=== PATIENT | female | born 1930 | race Caucasian/White ===

== ENCOUNTER 2017-11-26 23:21 | Inpatient (IN) ==
[2017-11-27] MEDS ORDERED: ALBUTEROL/IPRATROPIUM 3 ML NEB RESP TX STA (00:05)
[2017-11-27] MEDS ORDERED: cefTRIAXone 1,000 MG in SODIUM CHLORIDE 0.9% 100 ML IV STA (00:05)
[2017-11-27] MEDS ORDERED: cefTRIAXone 1,000 MG VIAL ONE (00:26)
[2017-11-27] MEDS ORDERED: SODIUM CHLORIDE 0.9% 100 ML IV ONE (00:26)
[2017-11-27 00:46] LABS: Basophils % 0.6 % (0.0-0.8); Eosinophils # 0.1 10*3/uL (0.0-0.87); Eosinophils % 1.4 % (0.00-10.9); Hematocrit 24.1 VOL% (35.7-47.0); Hemoglobin 7.9 GM/DL (12.0-16.0); Immature Granulocytes % 1.8 %; Immature Granulocytes Absolute 0.09 #; Lymphocytes # 0.5 10*3/uL (1.4-4.0); Lymphocytes % 9.6 % (21.3-54.2); Mean Corpuscular HGB Conc 32.8 GM/DL (32-36); Mean Corpuscular Hemoglobin 37 PG (27-34); Mean Corpuscular Volume 112.6 FL (87-102); Mean Platelet Volume 11.7 FL (9.6-12.0); Monocytes # 0.6 10*3/uL (0.11-0.8); Monocytes % 11.2 % (1.7-12.7); NRBC # 0.03 10*3/uL; Neutrophils # 3.7 10*3/uL (1.4-7.4); Neutrophils % 75.4 % (38.7-73.9); Platelet Count 182 T/CUMM (130-400); Red Blood Count 2.14 MC/CUMM (3.8-5.5); Red Cell Distribution Width 21.9 % (9.3-17.3); White Blood Count 4.9 T/CUMM (4-12)
[2017-11-27 00:58] LABS: INR 1.2; PT Patient Result 12.2 SECS
[2017-11-27 01:03] LABS: Lactic Acid 1.2 MMOL/L (0.4-2.0)
[2017-11-27 01:12] LABS: Albumin 2.8 G/DL (3.4-5.0); Bilirubin,Total 1.3 MG/DL (0.2-1.0); Calcium 8.6 MG/DL (8.5-10.1); Osmolality,Calculated 301.3 MOS/KG (273-304); Potassium 3.7 MMOL/L (3.5-5.1); Total Protein 5.2 G/DL (6.4-8.3)
[2017-11-27 01:13] LABS: Troponin I Only 0.044 NG/ML (0.00-0.045)
[2017-11-27] MEDS ORDERED: GLUCAGON 1 MG VIAL IM PRN (03:57)
[2017-11-27] MEDS ORDERED: DEXTROSE 50% 25 GM/50 ML VIAL IV PRN (03:57)
[2017-11-27] MEDS ORDERED: ALBUTEROL/IPRATROPIUM 3 ML NEB RESP TX PRN (03:59)
[2017-11-27] MEDS ORDERED: SODIUM CHLORIDE 0.45% 1,000 ML IV SCH (04:00)
[2017-11-27] MEDS ORDERED: SODIUM CHLORIDE 0.45% 1,000 ML IV ONE (05:23)
[2017-11-27] MEDS ORDERED: PIPERACILLIN/TAZOBACTAM 3,375 MG VIAL IV ONE (07:09)
[2017-11-27] MEDS: PIPERACILLIN/TAZOBACTAM 3,375 MG in SODIUM CHLORIDE 0.9% 100 ML IV SCH ×2 (07:15→18:43)
[2017-11-27] MEDS: SODIUM CHLORIDE 0.45% 1,000 ML IV SCH ×3 (07:20→23:27)
[2017-11-27 07:36] LABS: Eosinophils 1 % (0-10); Lymphocytes 15 % (20-55); Platelet Estimate Normal; Segmented Neutrophils 84 % (50-85); Total Cells Counted 100
[2017-11-27] MEDS: INSULIN LISPRO 100 UNIT/ML SUBCUT SCH ×3 (07:49→18:35)
[2017-11-27] MEDS: NOREPINEPHRINE 8 MG in SODIUM CHLORIDE 0.9% 242 ML IV SCH ×2 (08:18→23:41)
[2017-11-27 08:27] LABS: Apearance,Urine CLOUDY (Clear); Bacteria,Urine Many /HPF (Few); Bilirubin,Urine Negative (Negative); Blood, Urine Negative (Negative); Glucose,Urine (UA) Negative (Negative); Ketones,Urine Negative (Negative); Mucus,Urine Occasional /LPF (Occasional); Nitrite,Urine Positive (Negative); Protein,Urine Negative; RBC,Urine 11 /HPF (0-4); Squamous Epithelial Cell,Urine Occasional /HPF (0-10); Urine Color Yellow (Yellow); Urine Specific Gravity 1.019 (1.001-1.035); WBC,Urine 33 /HPF (0-6)
[2017-11-27] MEDS ORDERED: METOPROLOL TARTRATE 25 MG TABLET PO SCH (09:00)
[2017-11-27] MEDS: DOCUSATE SODIUM 100 MG CAPSULE PO SCH ×2 (12:51→13:51)
[2017-11-27] MEDS: ATORVASTATIN 10 MG TABLET PO SCH (12:51)
[2017-11-27] MEDS: APIXABAN 5 MG TABLET PO SCH ×2 (12:51→21:39)
[2017-11-27] MEDS: MULTIVITAMIN (CENTRUM) TABLET PO SCH ×2 (12:51→21:39)
[2017-11-27] MEDS: FERROUS SULFATE 325 MG TABLET PO SCH ×2 (12:51→21:39)
[2017-11-27] MEDS: DOCUSATE SODIUM 100 MG/10 ML UDCUP NG SCH ×2 (13:54→21:39)
[2017-11-27] MEDS: DILTIAZEM 60 MG TABLET PO SCH (15:16)
[2017-11-27] MEDS ORDERED: ZINC OXIDE PASTE 113 GM TUBE TOP PRN (15:54)
[2017-11-27] MEDS ORDERED: DILTIAZEM 50 MG/10 ML VIAL IV ONE ×2 (20:18→22:06)
[2017-11-27 21:19] LABS: Allen Test Positive; Pt O2 Delivery Device Venturi Mask
[2017-11-27 21:20] LABS: ABG HCO3 24.4 MMOL/L (20-26); ABG Oxygen Saturation 94.4 % (95-100); ABG PCO2 39.7 MM HG (35-48); ABG PH 7.402 (7.35-7.45); ABG TCO2 22.7 MMOL/L (23-27)
[2017-11-27] MEDS ORDERED: FUROSEMIDE 100 MG/10 ML VIAL ONE (21:48)
[2017-11-27] MEDS ORDERED: ETOMIDATE 20 MG/10 ML VIAL IV ONE ×2 (21:48→22:02)
[2017-11-27] MEDS ORDERED: SUCCINYLCHOLINE 200 MG/10 ML VIAL ONE (21:48)
[2017-11-27] MEDS ORDERED: DILTIAZEM INJ 100 MG in SODIUM CHLORIDE 0.9% 100 ML IV SCH (22:00)
[2017-11-27] MEDS ORDERED: FUROSEMIDE 40 MG/4 ML VIAL IV ONE (22:02)
[2017-11-27] MEDS ORDERED: SUCCINYLCHOLINE 200 MG/10 ML VIAL IV ONE (22:02)
[2017-11-27] MEDS ORDERED: PHENYLEPHRINE DRIP 0 MG/0 ML PREMIX IV ONE (22:06)
[2017-11-27] MEDS ORDERED: LEVALBUTEROL 1.25 MG/3 ML NEB RESP TX PRN (22:11)
[2017-11-27 22:34] LABS: ABG Base Excess -3.5 MMOL/L (-2.5-2.5); ABG HCO3 22.1 MMOL/L (20-26); ABG PCO2 42.2 MM HG (35-48); ABG PH 7.337 (7.35-7.45); ABG PO2 269.5 MM HG (80-95); ABG TCO2 23.4 MMOL/L (23-27); Allen Test Positive; Pt O2 Delivery Device Ventilator
[2017-11-27] MEDS: PROPOFOL 1,000 MG/100 ML BOTTLE IV SCH (22:40)
[2017-11-27] MEDS: DILTIAZEM INJ 100 MG in SODIUM CHLORIDE 0.9% 100 ML IV SCH (22:57)
[2017-11-27] MEDS: VANCOMYCIN INJ 1,000 MG in SODIUM CHLORIDE 0.9% 250 ML IV SCH (23:20)
[2017-11-27] MEDS: fentaNYL INJ 1,250 MCG in SODIUM CHLORIDE 0.9% 225 ML IV SCH (23:24)
[2017-11-27 23:35] LABS: Basophils % 0.4 % (0.0-0.8); Eosinophils % 0.2 % (0.00-10.9); Hemoglobin 7.9 GM/DL (12.0-16.0); Immature Granulocytes % 1.3 %; Immature Granulocytes Absolute 0.12 #; Lymphocytes # 0.3 10*3/uL (1.4-4.0); Lymphocytes % 2.7 % (21.3-54.2); Mean Corpuscular HGB Conc 31.6 GM/DL (32-36); Mean Corpuscular Hemoglobin 37 PG (27-34); Mean Corpuscular Volume 115.7 FL (87-102); Mean Platelet Volume 11.7 FL (9.6-12.0); Monocytes # 0.7 10*3/uL (0.11-0.8); Monocytes % 7.9 % (1.7-12.7); NRBC # 0.08 10*3/uL; Neutrophils # 8.2 10*3/uL (1.4-7.4); Neutrophils % 87.5 % (38.7-73.9); Platelet Count 193 T/CUMM (130-400); Red Blood Count 2.16 MC/CUMM (3.8-5.5); White Blood Count 9.4 T/CUMM (4-12)
[2017-11-27 23:51] LABS: Lactic Acid 1.4 MMOL/L (0.4-2.0)
[2017-11-27 23:55] LABS: Albumin 2.7 G/DL (3.4-5.0); Bilirubin,Total 1.5 MG/DL (0.2-1.0); Calcium 8.2 MG/DL (8.5-10.1); Osmolality,Calculated 288.1 MOS/KG (273-304); Potassium 3.8 MMOL/L (3.5-5.1); Total Protein 5.2 G/DL (6.4-8.3)
[2017-11-27 23:59] LABS: Troponin I Only 0.057 NG/ML (0.00-0.045)
[2017-11-28] MEDS: LEVALBUTEROL 1.25 MG/3 ML NEB RESP TX SCH ×4 (00:03→19:03)
[2017-11-28] MEDS ORDERED: AMIODARONE 150 MG/3 ML VIAL ONE (00:31)
[2017-11-28] MEDS ORDERED: AMIODARONE INJ 150 MG in DEXTROSE 5% 100 ML IV ONE (00:50)
[2017-11-28] MEDS ORDERED: AMIODARONE INJ 450 MG in DEXTROSE 5% 241 ML IV SCH ×3 (01:00→10:00)
[2017-11-28] MEDS ORDERED: DIGOXIN 0.5 MG/2 ML AMP IV ONE ×2 (01:00→07:30)
[2017-11-28] MEDS: INSULIN LISPRO 100 UNIT/ML SUBCUT SCH ×5 (01:04→23:41)
[2017-11-28] MEDS ORDERED: DIGOXIN 0.5 MG/2 ML AMP ONE (01:06)
[2017-11-28] MEDS ORDERED: CALCIUM GLUCONATE 1,000 MG in SODIUM CHLORIDE 0.9% 100 ML IV ONE (01:08)
[2017-11-28] MEDS: DILTIAZEM 60 MG TABLET PO SCH (01:36)
[2017-11-28 01:41] LABS: Band Neutrophils 33 % (0-10); Lymphocytes 5 % (20-55); Metamyelocytes 1 %; Nucleated Red Blood Cells 1 (0-5); Segmented Neutrophils 56 % (50-85); Total Cells Counted 100
[2017-11-28 01:42] LABS: Anisocytosis 1+; Macrocytosis 2+; Poikilocytosis 1+; Polychromasia 1+
[2017-11-28] MEDS: PIPERACILLIN/TAZOBACTAM 3,375 MG in SODIUM CHLORIDE 0.9% 100 ML IV SCH ×3 (03:08→17:55)
[2017-11-28] MEDS: PROPOFOL 1,000 MG/100 ML BOTTLE IV SCH ×4 (04:17→23:11)
[2017-11-28] MEDS ORDERED: NOREPINEPHRINE 4 MG/4 ML VIAL IV ONE (05:29)
[2017-11-28 05:42] LABS: ABG Base Excess 0.4 MMOL/L (-2.5-2.5); ABG HCO3 25.9 MMOL/L (20-26); ABG Oxygen Saturation 98.5 % (95-100); ABG PCO2 45.8 MM HG (35-48); ABG TCO2 27.3 MMOL/L (23-27)
[2017-11-28] MEDS: NOREPINEPHRINE 8 MG in SODIUM CHLORIDE 0.9% 242 ML IV SCH ×3 (06:58→20:23)
[2017-11-28] MEDS ORDERED: FUROSEMIDE 40 MG/4 ML VIAL IV ONE (07:01)
[2017-11-28] MEDS: SODIUM CHLORIDE 0.45% 1,000 ML IV SCH ×2 (07:29→22:29)
[2017-11-28] MEDS: FERROUS SULFATE 325 MG TABLET PO SCH ×2 (09:47→21:38)
[2017-11-28] MEDS: MULTIVITAMIN (CENTRUM) TABLET PO SCH ×2 (09:47→21:38)
[2017-11-28] MEDS: DOCUSATE SODIUM 100 MG/10 ML UDCUP NG SCH ×2 (09:47→21:38)
[2017-11-28] MEDS: ATORVASTATIN 10 MG TABLET PO SCH (09:47)
[2017-11-28] MEDS: APIXABAN 5 MG TABLET PO SCH ×2 (09:47→21:38)
[2017-11-28] MEDS: VANCOMYCIN INJ 1,000 MG in SODIUM CHLORIDE 0.9% 250 ML IV SCH ×2 (10:15→23:23)
[2017-11-28] MEDS: DILTIAZEM INJ 100 MG in SODIUM CHLORIDE 0.9% 100 ML IV SCH ×3 (12:14→23:11)
[2017-11-28] MEDS: fentaNYL INJ 1,250 MCG in SODIUM CHLORIDE 0.9% 225 ML IV SCH ×2 (21:40→23:11)
[2017-11-29] MEDS: LEVALBUTEROL 1.25 MG/3 ML NEB RESP TX SCH ×4 (00:34→19:44)
[2017-11-29] MEDS: PIPERACILLIN/TAZOBACTAM 3,375 MG in SODIUM CHLORIDE 0.9% 100 ML IV SCH ×3 (02:37→18:20)
[2017-11-29] MEDS: DILTIAZEM INJ 100 MG in SODIUM CHLORIDE 0.9% 100 ML IV SCH ×4 (02:40→22:32)
[2017-11-29] MEDS: PROPOFOL 1,000 MG/100 ML BOTTLE IV SCH ×3 (03:46→22:32)
[2017-11-29 04:39] LABS: Basophils # 0.1 10*3/uL (0.0-0.2); Basophils % 0.8 % (0.0-0.8); Eosinophils # 0.2 10*3/uL (0.0-0.87); Eosinophils % 2.8 % (0.00-10.9); Hematocrit 23.7 VOL% (35.7-47.0); Hemoglobin 7.7 GM/DL (12.0-16.0); Immature Granulocytes % 0.9 %; Immature Granulocytes Absolute 0.06 #; Lymphocytes # 1.2 10*3/uL (1.4-4.0); Lymphocytes % 18.2 % (21.3-54.2); Mean Corpuscular HGB Conc 32.5 GM/DL (32-36); Mean Corpuscular Hemoglobin 37 PG (27-34); Mean Corpuscular Volume 112.3 FL (87-102); Mean Platelet Volume 11.3 FL (9.6-12.0); Monocytes % 15.7 % (1.7-12.7); NRBC # 0.03 10*3/uL; Neutrophils # 3.9 10*3/uL (1.4-7.4); Neutrophils % 61.6 % (38.7-73.9); Platelet Count 248 T/CUMM (130-400); Red Blood Count 2.11 MC/CUMM (3.8-5.5); Red Cell Distribution Width 22.2 % (9.3-17.3); White Blood Count 6.3 T/CUMM (4-12)
[2017-11-29 04:41] LABS: ABG Base Excess 2.9 MMOL/L (-2.5-2.5); ABG PCO2 35.8 MM HG (35-48); ABG PH 7.476 (7.35-7.45); ABG TCO2 24.7 MMOL/L (23-27)
[2017-11-29 05:18] LABS: Calcium 7.7 MG/DL (8.5-10.1); Osmolality,Calculated 290.6 MOS/KG (273-304); Potassium 2.8 MMOL/L (3.5-5.1)
[2017-11-29] MEDS: NOREPINEPHRINE 8 MG in SODIUM CHLORIDE 0.9% 242 ML IV SCH (05:48)
[2017-11-29] MEDS: INSULIN LISPRO 100 UNIT/ML SUBCUT SCH ×4 (05:52→23:41)
[2017-11-29] MEDS ORDERED: FUROSEMIDE 20 MG/2 ML VIAL IV PRN (06:03)
[2017-11-29] MEDS ORDERED: SODIUM CHLORIDE 0.9% 1,000 ML IV PRN (06:03)
[2017-11-29] MEDS ORDERED: POTASSIUM CHLORIDE RIDER 10 MEQ in PREMIX 1 EACH IV PRN (06:03)
[2017-11-29 06:13] LABS: Band Neutrophils 3 % (0-10); Lymphocytes 17 % (20-55); Segmented Neutrophils 74 % (50-85); Total Cells Counted 100
[2017-11-29 06:14] LABS: Giant Platelets Few; Hypochromasia 1+; Macrocytosis Slight; Ovalocytes Slight; Platelet Estimate Adequate; Polychromasia Slight
[2017-11-29] MEDS: POTASSIUM CHLORIDE RIDER 20 MEQ in PREMIX 1 EACH IV PRN (07:38)
[2017-11-29] MEDS: POTASSIUM CHLORIDE 20 MEQ/15 ML UDCUP PER TUBE SCH ×4 (09:16→20:29)
[2017-11-29] MEDS: FERROUS SULFATE 325 MG TABLET PO SCH ×2 (09:17→20:29)
[2017-11-29] MEDS: ATORVASTATIN 10 MG TABLET PO SCH (09:17)
[2017-11-29] MEDS: MULTIVITAMIN (CENTRUM) TABLET PO SCH ×2 (09:17→20:29)
[2017-11-29] MEDS: DOCUSATE SODIUM 100 MG/10 ML UDCUP NG SCH ×2 (09:17→20:29)
[2017-11-29] MEDS: APIXABAN 5 MG TABLET PO SCH ×2 (09:17→20:29)
[2017-11-29] MEDS: VANCOMYCIN INJ 1,000 MG in SODIUM CHLORIDE 0.9% 250 ML IV SCH ×2 (11:38→22:44)
[2017-11-29 16:04] LABS: Hematocrit 35.6 VOL% (35.7-47.0); Hemoglobin 11.9 GM/DL (12.0-16.0)
[2017-11-29] MEDS: SODIUM CHLORIDE 0.45% 1,000 ML IV SCH (18:19)
[2017-11-29] MEDS: fentaNYL INJ 1,250 MCG in SODIUM CHLORIDE 0.9% 225 ML IV SCH (22:33)
[2017-11-30] MEDS ORDERED: SODIUM CHLORIDE 0.9% 500 ML IV ONE (00:10)
[2017-11-30] MEDS: LEVALBUTEROL 1.25 MG/3 ML NEB RESP TX SCH ×4 (00:40→19:20)
[2017-11-30] MEDS: DILTIAZEM INJ 100 MG in SODIUM CHLORIDE 0.9% 100 ML IV SCH ×3 (01:12→18:14)
[2017-11-30] MEDS: PIPERACILLIN/TAZOBACTAM 3,375 MG in SODIUM CHLORIDE 0.9% 100 ML IV SCH ×3 (02:24→18:18)
[2017-11-30 04:12] LABS: ABG Base Excess 0.1 MMOL/L (-2.5-2.5); ABG Oxygen Saturation 98.7 % (95-100); ABG PCO2 31.3 MM HG (35-48); ABG PH 7.484 (7.35-7.45); ABG PO2 190.7 MM HG (80-95)
[2017-11-30 04:21] LABS: Basophils % 0.2 % (0.0-0.8); Eosinophils % 0.5 % (0.00-10.9); Hematocrit 31.8 VOL% (35.7-47.0); Hemoglobin 10.5 GM/DL (12.0-16.0); Immature Granulocytes Absolute 0.06 #; Lymphocytes # 0.9 10*3/uL (1.4-4.0); Lymphocytes % 14.8 % (21.3-54.2); Mean Corpuscular Hemoglobin 34 PG (27-34); Mean Corpuscular Volume 103.2 FL (87-102); Mean Platelet Volume 11.3 FL (9.6-12.0); Monocytes # 0.6 10*3/uL (0.11-0.8); Monocytes % 9.8 % (1.7-12.7); Neutrophils # 4.6 10*3/uL (1.4-7.4); Neutrophils % 73.7 % (38.7-73.9); Platelet Count 164 T/CUMM (130-400); Red Blood Count 3.08 MC/CUMM (3.8-5.5); Red Cell Distribution Width 22.8 % (9.3-17.3); White Blood Count 6.2 T/CUMM (4-12)
[2017-11-30 04:45] LABS: Calcium 7.8 MG/DL (8.5-10.1); Magnesium 1.9 MG/DL (1.8-2.4); Osmolality,Calculated 290.8 MOS/KG (273-304); Potassium 3.6 MMOL/L (3.5-5.1)
[2017-11-30 05:08] LABS: Band Neutrophils 31 % (0-10); Lymphocytes 13 % (20-55); Segmented Neutrophils 46 % (50-85); Total Cells Counted 100
[2017-11-30 05:09] LABS: Anisocytosis 1+; Macrocytosis 1+; Poikilocytosis 1+
[2017-11-30] MEDS: INSULIN LISPRO 100 UNIT/ML SUBCUT SCH ×3 (06:25→18:37)
[2017-11-30] MEDS: NOREPINEPHRINE 8 MG in SODIUM CHLORIDE 0.9% 242 ML IV SCH (06:26)
[2017-11-30] MEDS: PROPOFOL 1,000 MG/100 ML BOTTLE IV SCH ×2 (06:35→22:31)
[2017-11-30] MEDS: MULTIVITAMIN (CENTRUM) TABLET PO SCH ×2 (10:42→21:33)
[2017-11-30] MEDS: DOCUSATE SODIUM 100 MG/10 ML UDCUP NG SCH ×2 (10:42→21:33)
[2017-11-30] MEDS: APIXABAN 5 MG TABLET PO SCH ×2 (10:42→21:33)
[2017-11-30] MEDS: FERROUS SULFATE 325 MG TABLET PO SCH ×2 (10:42→21:33)
[2017-11-30] MEDS: ATORVASTATIN 10 MG TABLET PO SCH (10:43)
[2017-11-30] MEDS: VANCOMYCIN INJ 1,000 MG in SODIUM CHLORIDE 0.9% 250 ML IV SCH ×2 (10:43→21:33)
[2017-11-30] MEDS: SODIUM CHLORIDE 0.45% 1,000 ML IV SCH (14:23)
[2017-11-30] MEDS: fentaNYL INJ 1,250 MCG in SODIUM CHLORIDE 0.9% 225 ML IV SCH (18:11)
[2017-12-01] MEDS: LEVALBUTEROL 1.25 MG/3 ML NEB RESP TX SCH ×2 (00:01→07:19)
[2017-12-01] MEDS: fentaNYL INJ 1,250 MCG in SODIUM CHLORIDE 0.9% 225 ML IV SCH (00:01)
[2017-12-01] MEDS: DILTIAZEM INJ 100 MG in SODIUM CHLORIDE 0.9% 100 ML IV SCH (00:01)
[2017-12-01] MEDS: INSULIN LISPRO 100 UNIT/ML SUBCUT SCH ×4 (00:52→18:07)
[2017-12-01] MEDS: PIPERACILLIN/TAZOBACTAM 3,375 MG in SODIUM CHLORIDE 0.9% 100 ML IV SCH (02:52)
[2017-12-01 05:25] LABS: ABG Base Excess -0.8 MMOL/L (-2.5-2.5); ABG HCO3 23.8 MMOL/L (20-26); ABG PCO2 36.1 MM HG (35-48); ABG TCO2 21.7 MMOL/L (23-27); Basophils % 0.5 % (0.0-0.8); Eosinophils # 0.1 10*3/uL (0.0-0.87); Eosinophils % 3.2 % (0.00-10.9); Hematocrit 26.6 VOL% (35.7-47.0); Hemoglobin 8.5 GM/DL (12.0-16.0); Immature Granulocytes % 0.7 %; Immature Granulocytes Absolute 0.03 #; Lymphocytes # 0.7 10*3/uL (1.4-4.0); Lymphocytes % 15.5 % (21.3-54.2); Mean Corpuscular Hemoglobin 34 PG (27-34); Mean Corpuscular Volume 106.4 FL (87-102); Mean Platelet Volume 11.2 FL (9.6-12.0); Monocytes # 0.4 10*3/uL (0.11-0.8); Monocytes % 9.3 % (1.7-12.7); Neutrophils # 3.1 10*3/uL (1.4-7.4); Neutrophils % 70.8 % (38.7-73.9); Platelet Count 133 T/CUMM (130-400); Red Cell Distribution Width 22.5 % (9.3-17.3); White Blood Count 4.3 T/CUMM (4-12)
[2017-12-01 05:47] LABS: Macrocytosis 1+
[2017-12-01 05:48] LABS: Anisocytosis 1+; Ovalocytes Slight; Tear Drop Cells Slight
[2017-12-01 05:49] LABS: Platelet Estimate Adequate
[2017-12-01 06:03] LABS: Calcium 8.3 MG/DL (8.5-10.1); Magnesium 2.2 MG/DL (1.8-2.4); Osmolality,Calculated 295.6 MOS/KG (273-304); Potassium 3.7 MMOL/L (3.5-5.1)
[2017-12-01] MEDS ORDERED: ALBUTEROL 2.5 MG/3 ML NEB RESP TX PRN (07:30)
[2017-12-01] MEDS: POTASSIUM CHLORIDE RIDER 20 MEQ in PREMIX 1 EACH IV PRN (07:45)
[2017-12-01] MEDS ORDERED: FUROSEMIDE 40 MG/4 ML VIAL IV ONE (08:03)
[2017-12-01] MEDS: MULTIVITAMIN (CENTRUM) TABLET PO SCH ×2 (08:42→21:21)
[2017-12-01] MEDS: DOCUSATE SODIUM 100 MG/10 ML UDCUP NG SCH ×2 (08:42→21:21)
[2017-12-01] MEDS: APIXABAN 5 MG TABLET PO SCH ×2 (08:42→21:21)
[2017-12-01] MEDS: FERROUS SULFATE 325 MG TABLET PO SCH ×2 (08:43→21:20)
[2017-12-01] MEDS: ATORVASTATIN 10 MG TABLET PO SCH (08:43)
[2017-12-01] MEDS: PROPOFOL 1,000 MG/100 ML BOTTLE IV SCH ×2 (10:02→23:00)
[2017-12-01] MEDS: AMPICILLIN/SULBACTAM 3,000 MG in SODIUM CHLORIDE 0.9% 100 ML IV SCH ×2 (11:31→17:54)
[2017-12-01] MEDS: ALBUTEROL 2.5 MG/3 ML NEB RESP TX SCH ×2 (13:24→20:32)
[2017-12-01] MEDS: NOREPINEPHRINE 8 MG in SODIUM CHLORIDE 0.9% 242 ML IV SCH (16:25)
[2017-12-02] MEDS: fentaNYL INJ 1,250 MCG in SODIUM CHLORIDE 0.9% 225 ML IV SCH (00:07)
[2017-12-02] MEDS: INSULIN LISPRO 100 UNIT/ML SUBCUT SCH ×3 (00:15→12:09)
[2017-12-02] MEDS: AMPICILLIN/SULBACTAM 3,000 MG in SODIUM CHLORIDE 0.9% 100 ML IV SCH ×3 (00:15→10:50)
[2017-12-02] MEDS: ALBUTEROL 2.5 MG/3 ML NEB RESP TX SCH ×3 (01:26→12:05)
[2017-12-02] MEDS: NOREPINEPHRINE 8 MG in SODIUM CHLORIDE 0.9% 242 ML IV SCH (05:31)
[2017-12-02 06:43] LABS: Basophils % 0.7 % (0.0-0.8); Eosinophils # 0.1 10*3/uL (0.0-0.87); Eosinophils % 3.7 % (0.00-10.9); Hematocrit 27.8 VOL% (35.7-47.0); Immature Granulocytes % 0.7 %; Immature Granulocytes Absolute 0.02 #; Lymphocytes # 0.4 10*3/uL (1.4-4.0); Mean Corpuscular HGB Conc 32.4 GM/DL (32-36); Mean Corpuscular Hemoglobin 34 PG (27-34); Mean Corpuscular Volume 106.1 FL (87-102); Monocytes # 0.4 10*3/uL (0.11-0.8); Monocytes % 13.2 % (1.7-12.7); Neutrophils # 1.8 10*3/uL (1.4-7.4); Neutrophils % 67.7 % (38.7-73.9); Platelet Count 141 T/CUMM (130-400); Red Blood Count 2.62 MC/CUMM (3.8-5.5); White Blood Count 2.7 T/CUMM (4-12)
[2017-12-02 07:05] LABS: Band Neutrophils 1 % (0-10); Eosinophils 3 % (0-10); Giant Platelets Few; Hypochromasia 1+; Lymphocytes 17 % (20-55); Macrocytosis Slight; Ovalocytes Slight; Platelet Estimate Normal; Segmented Neutrophils 69 % (50-85); Total Cells Counted 100
[2017-12-02 07:14] LABS: Calcium 8.5 MG/DL (8.5-10.1); Magnesium 2.2 MG/DL (1.8-2.4); Osmolality,Calculated 295.6 MOS/KG (273-304); Potassium 3.4 MMOL/L (3.5-5.1)
[2017-12-02] MEDS: MULTIVITAMIN (CENTRUM) TABLET PO SCH (08:14)
[2017-12-02] MEDS: DOCUSATE SODIUM 100 MG/10 ML UDCUP NG SCH (08:14)
[2017-12-02] MEDS: FERROUS SULFATE 325 MG TABLET PO SCH (08:15)
[2017-12-02] MEDS: ATORVASTATIN 10 MG TABLET PO SCH (08:15)
[2017-12-02] MEDS: APIXABAN 5 MG TABLET PO SCH (08:15)
[2017-12-02 08:43] LABS: ABG Base Excess 1.1 MMOL/L (-2.5-2.5); ABG HCO3 25.4 MMOL/L (20-26); ABG Oxygen Saturation 99.9 % (95-100); ABG PCO2 37.9 MM HG (35-48); ABG PH 7.431 (7.35-7.45); ABG TCO2 22.6 MMOL/L (23-27)
[2017-12-02] MEDS ORDERED: DILTIAZEM 30 MG TABLET PO SCH (09:00)
[2017-12-02] MEDS ORDERED: POTASSIUM CHLORIDE 20 MEQ TABLET PO ONE (09:55)
[2017-12-02] MEDS ORDERED: DILTIAZEM INJ 100 MG in SODIUM CHLORIDE 0.9% 100 ML IV SCH (10:00)
[2017-12-02] MEDS: POTASSIUM CHLORIDE RIDER 20 MEQ in PREMIX 1 EACH IV PRN ×2 (10:12→12:09)
[2017-12-02 14:42] VITALS: BP 116/64
== END 2017-12-02 14:47 | DRG 208 ==
LOC: EDUNIT# → EDBD → N.ED 23:21 → N.EDINP 11-27 03:20 → SUATTDRO 11-27 03:20 → N.TELES 11-27 04:15 → N.CC 11-27 06:37 → N.ICU 11-27 06:37
PROVIDERS: ADMIT Internal Medicine; ATTEND Internal Medicine